=== PATIENT | male | born 1940 | race Caucasian/White ===

== ENCOUNTER → 2020-07-18 13:51 | Outpatient (BNVA) | payer OTHER, SELFPAY | PROVIDERS: Family Provider Emergency Medicine Emergency Medical Services; PCP Emergency Medicine Emergency Medical Services; Referring Provider Nurse Practitioner; Visit Provider Nurse Practitioner | DX: R41.89 Other symptoms and signs involving cognitive functions and awareness (principal); R26.9 Unspecified abnormalities of gait and mobility; M54.2 Cervicalgia | CPT/HCPCS: 99205 ==

== ENCOUNTER 2020-11-14 08:40 | Outpatient (CLI) | payer OTHER, SELFPAY ==
--- NOTE | 2020-11-14 09:44 | MR_ITS ---
WS: [id number] MRI CERVICAL SPINE NONCONTRAST TECHNIQUE: Sagittal T1, T2 and STIR imaging. Axial T2, gradient, and fiesta imaging. CLINICAL INFORMATION: M54.2 - Cervicalgia COMPARISON: None. FINDINGS: Mild cervical curve. Exaggeration the normal cervical lordosis. Disc osteophyte complexes worse at C3 -C4, C4-5, and C6-7. C2-C3: Minimal disc bulging. Mild right foraminal narrowing. Spinal canal is patent. C3-C4: Disc osteophyte complex with endplate ridging. Mild central canal stenosis. Moderate left fora shauna narrowing. Moderate facet arthropathy. C4-C5: Disc osteophytic complex with endplate ridging. Severe left and mild right bony foraminal narr owing. Moderate facet arthropathy. Mild to moderate central canal stenosis. C5-C6: Disc osteophytic complex with endplate ridging. Moderate to severe left greater than right bon y foraminal narrowing. Moderate facet arthropathy. Spinal canal is patent. C6-C7: Shallow central disc osteophyte protrusion with slight contact of the cervical cord. Severe ri ght and moderate left bony foraminal narrowing. Moderate facet arthropathy. C7-T1: Mild right and no significant left foraminal narrowing. Spinal canal is patent.. Visualized brain stem structures: Normal. Prevertebral soft tissues: Normal. MR/MR cervical spin wo con* [id number] IMPRESSION: 1. Exaggeration normal cervical lordosis. Cord signal is normal. 2. Disc osteophyte protrusion C3-C4 C4-C5 and C6-C7 with mild to moderate cent ral canal stenosis. Central canal stenosis most prominent at C4-5. 3. Multilevel moderate to severe bony foraminal narrowing worse at left C4-C5, bilateral C5-C6, and right C6-C7. 4. 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
--- NOTE | 2020-11-14 09:44 | MR_ITS ---
WS: [id number] MRI HEAD WITHOUT CONTRAST TECHNIQUE: Sagittal T1, T2 axial, T2 axial FLAIR, axial and coronal T1 images, axial susceptibility w eighted imaging, axial diffusion weighted images, and coronal T2 images were obtained. CLINICAL INFORMATION: R26.9 - Unspecified abnormalities of gait and mobility COMPARISON: None. FINDINGS: Small area of partially restricted diffusion in the right splenium corpus callosum measuring 7 mm miguel picious for small amount of subacute ischemia. Otherwise no evidence of acute to subacute ischemia. M oderate small vessel changes with moderate to advanced parenchymal volume loss. Normal posterior rg a. Normal vascular flow voids at the skull base. No extra-axial fluid collections. No evidence of mas s or mass effect. Advanced symmetric atrophy temporal lobes and hippocampal formations. Normal optic chiasm and pituita ry infundibulum. Normal cavernous sinuses and Meckel's cave. No hemosiderin on the susceptibly weight ed images. MR/MR head wo con* [id number] IMPRESSION: 1. 7 mm focus of partially restricted diffusion in the splenium right corpus c allosum suspicious for acute to subacute ischemia. 2. Moderate small vessel changes with moderate to advanced parenchymal volume loss. 3. Advanced symmetric atrophy temporal lobes and hippocampal formations. 4. No hemosiderin on susceptibly weighted images. 5. Overall atrophy more prominent in the anterior temporal and parietal lobes which can be seen with Alzheimer's type dementia in appropriate clinical settin g
== END 2020-11-14 08:41 | disposition home or self-care (01) ==
PROVIDERS: Visit Provider Nurse Practitioner
DX: M54.2 Cervicalgia (principal); R26.9 Unspecified abnormalities of gait and mobility; R41.89 Other symptoms and signs involving cognitive functions and awareness; G31.9 Degenerative disease of nervous system, unspecified; M47.812 Spondylosis without myelopathy or radiculopathy, cervical region; M25.78 Osteophyte, vertebrae
CPT/HCPCS: 70551; 72141

== ENCOUNTER → 2020-12-12 09:59 | Outpatient (BNVA) | payer OTHER, SELFPAY | PROVIDERS: PCP Nurse Practitioner; Visit Provider Nurse Practitioner | DX: R41.3 Other amnesia (principal); I48.91 Unspecified atrial fibrillation; Z87.891 Personal history of nicotine dependence | CPT/HCPCS: 99213; 99214 ==